=== PATIENT | male | born 1975 | race Caucasian/White ===

== ENCOUNTER 2020-02-03 15:08 | Emergency (ER) | payer SELFPAY ==
[~2020-02-03] VITALS: Ht 175.3 cm; Wt 76.7 kg
--- NOTE | 2020-02-03 15:25 | NUR ---
Patient discharged to home in stable condition. Written and verbal after care instructions given. Patient verbalizes understanding of instructions. Stressed follow up or return to ER for worsening s/s.pt walks in steady gait.
== END 2020-02-03 15:31 | disposition home or self-care (01) ==
LOC: ER 15:08
DX: S16.1XXA Strain of muscle, fascia and tendon at neck level, initial encounter (principal); S39.012A Strain of muscle, fascia and tendon of lower back, initial encounter; S80.01XA Contusion of right knee, initial encounter; V43.52XA Car driver injured in collision with other type car in traffic accident, initial encounter; Y92.410 Unspecified street and highway as the place of occurrence of the external cause
CPT/HCPCS: A4663

== ENCOUNTER 2020-03-18 10:30 | Emergency (ER) | payer SELFPAY ==
[~2020-03-18] VITALS: Ht 175.3 cm; Wt 77.1 kg
--- NOTE | 2020-03-18 10:37 | NUR ---
Dr. Velazquez at bedside for MSE
--- NOTE | 2020-03-18 10:50 | NUR ---
Patient discharged to home in stable condition. Written and verbal after care instructions given. Patient verbalizes understanding of instructions. Stressed follow up or return to ER for worsening s/s. Patient ambulated with steady gait. NAD noted
[2020-03-18 10:53] VITALS: BP 116/82
== END 2020-03-18 10:50 | disposition home or self-care (01) ==
LOC: ER 10:30
DX: S13.4XXA Sprain of ligaments of cervical spine, initial encounter (principal); S13.9XXA Sprain of joints and ligaments of unspecified parts of neck, initial encounter; V49.40XA Driver injured in collision with unspecified motor vehicles in traffic accident, initial encounter; Y92.410 Unspecified street and highway as the place of occurrence of the external cause
CPT/HCPCS: A4663